=== PATIENT | female | born 2005 | race Caucasian/White ===

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

== ENCOUNTER 2023-10-24 04:16 | Inpatient (IN) ==
[2023-10-24] MEDS ORDERED: Buffered Lidocaine 1% SYRIN 1 ml INTRADERM ONE (05:44)
[2023-10-24] MEDS ORDERED: Lactated Ringers 1000 ml BAG 1,000 ML IV SCH ×4 (06:00→10:00)
[2023-10-24] MEDS ORDERED: Lidocaine 1% VIAL 10 MG/ML 30 ML VIAL INJ PRN (06:04)
[2023-10-24] MEDS ORDERED: Lidocaine 1.5% EPI 1:200,000 30 ML SDV ONE (06:28)
[2023-10-24] MEDS ORDERED: OBEPIDURAL (200 ML) 200 ML EPIDURAL ONE (06:31)
[2023-10-24 06:40] LABS: Hematocrit 31.6 % (35-45); Hemoglobin 10.6 g/dL (11.5-14.3); Mean Corpuscular Hemoglobin 27.5 pg (27-33); Mean Corpuscular Hgb Conc 33.5 g/dL (31-36); Platelet Count 269 10^3/uL (150-450); Red Blood Count 3.86 10^6/uL (3.63-4.92); Red Cell Distribution Width 14.2 % (12-17); White Blood Count 18.2 10^3/uL (3.8-11.8)
[2023-10-24 06:59] LABS: Urine Benzodiazepine Screen None Detected (None Detect); Urine Cannabinoids Screen None Detected (None Detect); Urine Opiates Screen None Detected (None Detect)
[2023-10-24] MEDS: Lactated Ringers 1000 ml BAG 1,000 ML IV ONE (07:00)
[2023-10-24] MEDS: OBEPIDURAL (200 ML) 200 ML EPIDURAL SCH (07:14)
[2023-10-24] MEDS ORDERED: Phenylephrine 40 mcg/mL 10mL (400mcg) SYRINGE IV PUSH PRN ×2 (07:21)
[2023-10-24] MEDS ORDERED: Sodium Citrate/Citric Acid LIQ 15 ML UDC PO PRN (07:21)
[2023-10-24] MEDS ORDERED: Lactated Ringers 1000 ml BAG 1,000 ML IV ONE (07:21)
[2023-10-24 07:56] LABS: ABS Basophils 0.1 10^3/uL (0.0-0.1); ABS Eosinophils 0.1 10^3/uL (0.0-0.5); ABS Lymphocytes 3.1 10^3/uL (1.0-4.8); ABS Monocytes 1.9 10^3/uL (0.0-0.9); Eosinophil % 0.4 %; Lymphocyte % 17.1 %
[2023-10-24 07:57] LABS: Urine Appearance Clear; Urine Bilirubin Negative (Negative); Urine Blood Negative (Negative); Urine Color Light-Yellow; Urine Glucose Negative (Negative); Urine Ketones Negative (Negative); Urine Nitrite Negative (Negative); Urine Protein Negative (Negative); Urine Specific Gravity 1.019 (1.002-1.030); Urine Urobilinogen 1+ (Negative)
[2023-10-24] MEDS ORDERED: Oxytocin in LR 0 MILLI.UNIT/0 ML BAG IV ONE (09:33)
[2023-10-24] MEDS ORDERED: Oxytocin 10 UNITS/ML 1 ML VIAL IM PRN (09:56)
[2023-10-24] MEDS ORDERED: Glycerin ADULT 2.4 gm SUPP PR PRN (09:56)
[2023-10-24] MEDS: Witch Hazel PAD JAR TOPICAL PRN (10:54)
[2023-10-24] MEDS: Dibucaine 1% OINT 28.35 GM TUBE PR PRN (10:54)
[2023-10-25 06:49] LABS: Hematocrit 31.2 % (35-45); Hemoglobin 10.5 g/dL (11.5-14.3); Mean Corpuscular Hemoglobin 27.5 pg (27-33); Mean Corpuscular Hgb Conc 33.6 g/dL (31-36); Mean Corpuscular Volume 81.8 fL (80-97); Mean Platelet Volume 8.3 fL (7.5-11.2); Platelet Count 276 10^3/uL (150-450); Red Blood Count 3.82 10^6/uL (3.63-4.92); Red Cell Distribution Width 14.4 % (12-17); White Blood Count 17.6 10^3/uL (3.8-11.8)
[2023-10-25 06:53] LABS: ABS Basophils 0.1 10^3/uL (0.0-0.1); ABS Eosinophils 0.1 10^3/uL (0.0-0.5); ABS Lymphocytes 3.2 10^3/uL (1.0-4.8); ABS Neutrophils 12.2 10^3/uL (1.5-7.6); ABS Nucleated RBC 0.03 10^3/ul; Eosinophil % 0.4 %; Lymphocyte % 18.3 %; Nucleated Red Blood Cells % 0.2 %/100WBC (0.0-0.8)
[2023-10-25 07:56] VITALS: BP 106/69
== END 2023-10-25 12:30 | disposition home or self-care (01) | DRG 560 ==
LOC: MCHOBOUT 04:16 → MCHOB 06:02
PROVIDERS: ADMIT Midwife; ATTEND Registered Nurse